=== PATIENT | female | born 1985 | race Two or more races ===

== ENCOUNTER 2018-03-20 14:27 | Outpatient (CLI) | payer BC ==
[2018-03-21 23:07] LABS: APPEARANCE,URINE CLEAR (CLEAR); COLOR,URINE YELLOW (YELLOW)
[2018-03-21 23:12] LABS: BILIRUBIN,URINE NEGATIVE (NEGATIVE); BLOOD, URINE NEGATIVE Ery/uL (NEGATIVE); PROTEIN,URINE NEGATIVE (NEGATIVE); UGLUCOSE NEGATIVE (NEGATIVE)
[2018-03-21 23:13] LABS: KETONES,URINE NEGATIVE (NEGATIVE); LEUKOCYTE ESTERASE ,URINE NEGATIVE (NEGATIVE); NITRITE, URINE NEGATIVE (NEGATIVE); UROBILINOGEN,URINE 0.2 EU/dL (0.2)
== END 2018-03-20 23:59 | disposition home or self-care (01) ==
LOC: LAB 14:27
DX: N30.90 Cystitis, unspecified without hematuria (principal)
CPT/HCPCS: 81000-TC; 87086-TC; 87186-TC